=== PATIENT | male | born 1955 | race Hispanic/Latino ===

== ENCOUNTER 2021-10-15 12:04 | Emergency (ER) | payer OTHER, MEDICARE ==
[~2021-10-15] VITALS: Ht 167.6 cm; Wt 74.8 kg
[2021-10-15] MEDS ORDERED: 0.9%NACL 1000ML 1,000 ML IV SCH (12:30)
[2021-10-15 14:04] LABS: BASOPHILS % (AUTO) 0.3 % (0.0-5.0); HEMATOCRIT 37.5 % (42-54); LYMPHOCYTES % (AUTO) 18.9 % (21.0-51.0); MEAN CORPUSCULAR HEMOGLOBIN 29.5 pg (27.0-33.0); MEAN CORPUSCULAR HGB CONC 35.2 g/dL (32.0-36.0); MEAN CORPUSCULAR VOLUME 83.9 fL (79-99); MONOCYTES % (AUTO) 9.2 % (3.0-13.0); NEUTROPHILS % (AUTO) 71.3 % (40.0-77.0); PLATELET COUNT (AUTO) 157 K/uL (130-400); RED BLOOD CELL COUNT(AUTO) 4.47 MIL/uL (4.50-6.20); RED CELL DISTRIBUTION WIDTH 13.3 % (11.0-15.5); WHITE BLOOD COUNT (AUTO) 3.9 K/uL (4.8-10.8)
[2021-10-15 14:21] LABS: ALBUMIN 2.8 g/dL (3.5-5.0); BILIRUBIN,TOTAL 0.3 mg/dL (0.2-1.0); TOTAL PROTEIN, SERUM 5.8 g/dL (6.0-8.3)
[2021-10-15 14:25] LABS: POTASSIUM 2.9 mmol/L (3.5-5.1)
[2021-10-15] MEDS ORDERED: POTASSIUM BICARB/CIT AC 25 MEQ TABLET.EFF PO ONE (14:30)
[2021-10-15 14:45] LABS: APPEARANCE,URINE Cloudy (CLEAR); BILIRUBIN,URINE Negative (NEGATIVE); COLOR,URINE Dark Yellow (YELLOW); GLUCOSE, URINE (UA) Negative (NEGATIVE); KETONES,URINE Trace mg/dL (NEGATIVE); LEUKOCYTE ESTERASE ,URINE Negative (NEGATIVE); NITRATE,URINE Negative (NEGATIVE); OCCULT BLOOD,URINE Negative (NEGATIVE); PH,URINE 6.5 (5.0-8.0); PROTEIN,URINE Trace mg/dL (NEGATIVE)
[2021-10-15 15:00] LABS: BACTERIA,URINE Moderate /HPF (None Seen); RBC,URINE 0-1 /HPF (0-1); WBC,URINE 0-1 /HPF (0-1)
[2021-10-15 15:01] LABS: MUCUS,URINE Few LPF (None Seen); SQUAMOUS EPITHELIAL CELL,UR Moderate /HPF (0-2)
[2021-10-15 20:18] VITALS: BP 104/68
== END 2021-10-15 22:55 | disposition home or self-care (01) ==
LOC: EDH 12:04
DX: U07.1 COVID-19 (principal); E87.1 Hypo-osmolality and hyponatremia; E87.6 Hypokalemia; E86.0 Dehydration; I10 Essential (primary) hypertension; Z90.89 Acquired absence of other organs; Z86.73 Personal history of transient ischemic attack (TIA), and cerebral infarction without residual deficits; Z98.890 Other specified postprocedural states
CPT/HCPCS: 99285; 96360; 71045; 87635; 84484; 80053; 85025; 87088; 87804 ×2; 81001; 36415; C9803; J7030